=== PATIENT | female | born 1980 | race Caucasian/White ===

== ENCOUNTER 2017-11-04 09:05 | Emergency (ER) | payer OTHER ==
[~2017-11-04] VITALS: Ht 165.1 cm; Wt 117.9 kg
[~2017-11-04 09:05] MED LIST: HUMALOG100 UNIT/2 SC; KETOROLAC TROME10 M1 PO; VICODIN 5-3001 EACH PO
[2017-11-04 09:14] VITALS: BP 138/83
[2017-11-04 10:19] LABS: ABSOLUTE BASOPHIL COUNT 0 /CUMM (0.0-0.2); ABSOLUTE EOSINOPHIL COUNT 0.2 /CUMM (0.0-0.7); ABSOLUTE GRANULOCYTE CT 7.5 /CUMM (1.4-6.5); ABSOLUTE LYMPH COUNT 2.2 /CUMM (1.2-3.4); ABSOLUTE MONOCYTE COUNT 0.4 /CUMM (0.10-0.60); BASOPHIL % 0.3 % (0.0-2.0); EOSINOPHIL % 2.1 % (0-5); GRANULOCYTE % 72.3 % (42.2-75.2); HEMATOCRIT 36.8 % (37-47); MEAN CORPUSCULAR HGB 29.6 PG (27.0-31.0); MEAN CORPUSCULAR HGB CONC 34.1 G/DL (33.0-37.0); MEAN CORPUSCULAR VOLUME 86.8 FL (81.0-99.0); MEAN PLATELET VOLUME 8.3 FL (7.4-10.4); PLATELET COUNT 335 /CUMM (130-400); RBC DISTRIBUTION WIDTH 13.4 % (11.5-14.5); RED BLOOD CELL CT 4.24 /CUMM (4.20-5.40); WHITE BLOOD CELL COUNT 10.4 /CUMM (4.8-10.8)
[2017-11-04] MEDS ORDERED: METFORMIN HCL1000 M1 PO (10:39)
--- NOTE | 2017-11-04 10:44 | CT SCAN REPORT ---
EXAMINATION: CT ABDOMEN AND PELVIS WITHOUT CONTRAST CLINICAL INFORMATION: Right flank and back pain. History of stones. Presumptive diagnosis: Kidney stones. COMPARISON: None TECHNIQUE: Multidetector volumetric imaging was performed from the superior aspect of the liver through the pubic symphysis. Sagittal and coronal reformatted images were obtained on the technologist's workstation. DLP: 1366.98 mGy-cm FINDINGS: LUNG BASES: The visualized lung bases are unremarkable. LIVER, GALLBLADDER, AND BILIARY TREE: The liver is normal in size, shape, and attenuation. No focal hepatic lesion or biliary ductal dilatation is present. The gallbladder is surgically absent. PANCREAS: Unremarkable. SPLEEN: Unremarkable. ADRENAL GLANDS: Unremarkable. KIDNEYS AND URETERS: There are 3 right renal calculi. The largest is in the lower pole and is a focal staghorn type calculus measuring 1.4 x 1.4 x 0.7 cm. The left kidney is unremarkable. There is no hydronephrosis. The ureters are not dilated. The distal right ureter is difficult to visualize. There are a few calcifications along or close to the course of the distal right ureter, which are most likely vascular. Subtle nonobstructing ureteral calculi are difficult to entirely exclude, but are probably unlikely. BLADDER: Unremarkable. GASTROINTESTINAL TRACT: There is a small hiatal hernia. The small and large bowel are unremarkable. The appendix is unremarkable. ABDOMINAL WALL: There is some bulging of the rectus sheath, most prominent in the region of the umbilicus. There is a tiny fat-containing umbilical hernia. LYMPH NODES: Normal. VASCULAR: Unremarkable. PELVIC VISCERA: Unremarkable. OSSEOUS STRUCTURES: Unremarkable. IMPRESSION: 1. Right renal calculi. No hydronephrosis. Probable vascular calcifications along the course of the distal right ureter is otherwise difficult to visualize. No evidence of ureteral dilatation. 2. Small hiatal hernia. 3. Bulging of the rectus sheath and tiny fat-containing umbilical hernia.
--- NOTE | 2017-11-04 11:04 | ED GI/GU/ABDOMINAL COMPLAINT ---
History of Present Illness General Chief Complaint: Abdominal Pain/Flank Pain Stated Complaint: RT FLANK PAIN Source: patient Exam Limitations: no limitations Vital Signs & Intake/Output Vital Signs & Intake/Output ED Intake and Output 11/05 0000 11/04 1200 Intake Total Output Total Balance Patient 260 lb Weight Weight Reported by Patient Measurement Method Allergies Coded Allergies: bee pollen (Severe, ANAPHYLAXIS 10/25/16) peanut (Severe, ANAPHYLAXIS 10/25/16) Reconcile Medications Hydrocodone/Acetaminophen (Stirling 5-325 Tablet) 5 MG-325 MG TABLET 1 TAB PO Q4- 6 PRN PRN PAIN Metformin HCl 1,000 MG TABLET 1 TAB PO BID DIABETES (Reported) Ondansetron (Zofran Odt) 4 MG TAB.RAPDIS 1 TAB SL TID PRN NAUSEA Tamsulosin HCl (Flomax) 0.4 MG CAP.ER.24H 1 CAP PO DAILY KIDNEY STONES Triage Note: PT TO ED WITH C/O RIGHT FLANK PAIN, HX KIDNEY STONES A COUPLE OF YEARS AGO, FEELS THE SAME. PT ALSO C/O VOMITING SINCE LAST NIGHT. Triage Nurses Notes Reviewed? yes LMP (ages 10-50): unknown ? N Is pt currently ? No Onset: Abrupt Duration: day(s): (1), constant, continues in ED, getting worse Timing: remote history Quality/Severity: cramping Severity Numbers: 9 Location: right flank Radiation: back Activities at Onset: none Prior Abdominal Problems: similar symptoms Past Sexual History: Unobtainable at this time No Modifying Factors: none HPI: 36-year-old female history of obesity, kidney stones, diabetes presents evaluation of right flank pain. Patient reports symptoms started last night into today and been getting worse. The pain is located in the right flank radiating to the back. Described as cramping. Associated with nausea and vomiting. Patient reports a history of kidney stones feeling is similar. She's never required lithotripsy. She denies fever dysuria frequency urgency chest pain shortness of breath with difficulty urinating. She has not taken any medicine for the symptoms. She is tolerating water. (Alexey Delvalle) Past History Travel History Traveled to [place] past 21 day No Medical History Any Pertinent Medical History? see below for history Neurological: NONE EENT: NONE Cardiovascular: NONE Respiratory: NONE Gastrointestinal: NONE Hepatic: NONE Renal: KIDNEY STONES Musculoskeletal: NONE Psychiatric: NONE Endocrine: INSULIN DEPENDENT DM Blood Disorders: NONE Cancer(s): NONE Other Medical Hx: DVT, PVD Surgical History Surgical History: non-contributory Psychosocial History What is your primary language Lao Tobacco Use: Never used ETOH Use: denies use Illicit Drug Use: denies illicit drug use Family History Hx Contributory? No (Alexey Delvalle) Review of Systems Review of Systems Constitutional: Reports: no symptoms. EENTM: Reports: no symptoms. Respiratory: Reports: no symptoms. Cardiovascular: Reports: no symptoms. GI: Reports: see HPI, abdominal pain, nausea, vomiting. Genitourinary: Reports: no symptoms. Musculoskeletal: Reports: see HPI, back pain. Skin: Reports: no symptoms. Neurological/Psychological: Reports: no symptoms. Hematologic/Endocrine: Reports: no symptoms. Immunologic/Allergic: Reports: no symptoms. All Other Systems: Reviewed and Negative (Alexey Delvalle) Physical Exam Physical Exam General Appearance: well developed/nourished, no apparent distress, alert, awake , obese Head: atraumatic, normal appearance Eyes: Bilateral: normal appearance, PERRL, EOMI. Ears, Nose, Throat, Mouth: moist mucous membrane Neck: normal inspection, supple, full range of motion Respiratory: normal breath sounds, chest non-tender, no respiratory distress, lungs clear Cardiovascular: regular rate/rhythm, normal peripheral pulses Peripheral Pulses: 2+ radial (R), 2+ radial (L) Gastrointestinal: normal bowel sounds, soft, no organomegaly, tenderness (RT FLANK) Back: normal inspection, normal range of motion, RIGHT-SIDED LUMBAR PARASPINAL MUSCLES ARE TENDER TO PALPATION NO cva TENDERNESS NO MIDLINE TENDERNESS Extremities: normal range of motion Neurologic/Psych: no motor/sensory deficits, awake, alert, oriented x 3, normal gait Skin: intact, normal color, warm/dry Core Measures ACS in differential dx? No Sepsis Present: No Sepsis Focused Exam Completed? No (Alexey Delvalle) Progress Differential Diagnosis: appendicitis, biliary colic, colon cancer, cholecystitis , diverticulitis, hepatitis, kidney stone, ovarian cyst, ovarian torsion, pancreatitis, PID/cervicitis, peptic ulcer, PUD/GERD, UTI/pyelo Plan of Care: Orders Procedure Date/time Status URINE 11/05 915 Complete URINALYSIS 11/05 915 Complete LIPASE 11/05 915 Complete COMPREHENSIVE METABOLIC PANEL 09/12 0916 Complete CBC WITHOUT DIFFERENTIAL 11/05 915 Complete Laboratory Tests 11/04/17 1001: Urine Color YEL, Urine Clarity CLEAR, Urine pH 6.0, Ur Specific [place] >= 1.030 , Urine Protein NEG, Urine Ketones NEG, Urine Nitrite NEG, Urine Bilirubin NEG, Urine Urobilinogen 0.2, Ur Leukocyte Esterase NEG, Ur Microscopic SEDIMENT EXAMINED, Urine RBC 1-3, Urine WBC 5-10 H, Ur Epithelial Cells MOD H, Urine Bacteria FEW H, Urine Hemoglobin TRACE-INTACT, Urine Glucose NEG, Urine Test NEGATIVE 11/04/17 0959: Anion Gap 9, Estimated GFR > 60, BUN/Creatinine Ratio 17.5, Glucose 169 H, Calcium 9.4, Total Bilirubin 0.3, AST 21, ALT 28, Alkaline Phosphatase 52, Total Protein 6.9, Albumin 3.9, Globulin 3.0, Albumin/Globulin Ratio 1.3, Lipase 87, CBC w Diff NO MAN DIFF REQ, RBC 4.24, MCV 86.8, MCH 29.6, MCHC 34.1, RDW 13.4, MPV 8.3, Gran % 72.3, Lymphocytes % 21.0, Monocytes % 4.3, Eosinophils % 2.1, Basophils % 0.3, Absolute Granulocytes 7.5 H, Absolute Lymphocytes 2.2, Absolute Monocytes 0.4, Absolute Eosinophils 0.2, Absolute Basophils 0 Patient is here with right flank pain. She has a history of kidney stones feels like is similar. Vital signs are stable labs CT scan ordered patient medicated with Toradol and Zofran. Urine is negative for signs of infection. Blood work is unremarkable. CT scan shows renal stones without hydronephrosis or hydroureter. No visible stones in the ureter. Patient is feeling better after Toradol. She was given a prescription for Flomax Zofran and Stirling. Follow-up with urology. Discussed return precautions in detail patient agrees the plan Diagnostic Imaging: Viewed by Me: CT Scan. Discussed w/RAD: CT Scan. Radiology Impression: PATIENT: LYLE FLOWERS PRESENT AGE: 36 PATIENT ACCOUNT NO: [id number] : 82 LOCATION: [facility] ORDERING PHYSICIAN: Alexey BRONSON SERVICE DATE: 11/04/17 EXAM TYPE: CAT - CT ABD & PELVIS W/O IV CONTRAS EXAMINATION: CT ABDOMEN AND PELVIS WITHOUT CONTRAST CLINICAL INFORMATION: Right flank and back pain. History of stones. Presumptive diagnosis: Kidney stones. COMPARISON: None TECHNIQUE: Multidetector volumetric imaging was performed from the superior aspect of the liver through the pubic symphysis. Sagittal and coronal reformatted images were obtained on the technologist's workstation. DLP: 1366.98 mGy-cm FINDINGS: LUNG BASES: The visualized lung bases are unremarkable. LIVER, GALLBLADDER, AND BILIARY TREE: The liver is normal in size, shape, and attenuation. No focal hepatic lesion or biliary ductal dilatation is present. The gallbladder is surgically absent. PANCREAS: Unremarkable. SPLEEN: Unremarkable. ADRENAL GLANDS: Unremarkable. KIDNEYS AND URETERS: There are 3 right renal calculi. The largest is in the lower pole and is a focal staghorn type calculus measuring 1.4 x 1.4 x 0.7 cm. The left kidney is unremarkable. There is no hydronephrosis. The ureters are not dilated. The distal right ureter is difficult to visualize. There are a few calcifications along or close to the course of the distal right ureter, which are most likely vascular. Subtle nonobstructing ureteral calculi are difficult to entirely exclude, but are probably unlikely. BLADDER: Unremarkable. GASTROINTESTINAL TRACT: There is a small hiatal hernia. The small and large bowel are unremarkable. The appendix is unremarkable. ABDOMINAL WALL: There is some bulging of the rectus sheath, most prominent in the region of the umbilicus. There is a tiny fat-containing umbilical hernia. LYMPH NODES: Normal. VASCULAR: Unremarkable. PELVIC VISCERA: Unremarkable. OSSEOUS STRUCTURES: Unremarkable. IMPRESSION: 1. Right renal calculi. No hydronephrosis. Probable vascular calcifications along the course of the distal right ureter is otherwise difficult to visualize. No evidence of ureteral dilatation. 2. Small hiatal hernia. 3. Bulging of the rectus sheath and tiny fat-containing umbilical hernia. DICTATED BY: Teddy Dunlap MD DATE/TIME DICTATED:11/04/171025 BODY REPAIRER:SEVEN DATE/TIME TRANSCRIBED:11/04/171025 Initial ED EKG: none (Alexey Delvalle) Departure Departure Disposition: HOME OR SELF CARE Condition: Stable Clinical Impression Primary Impression: Renal colic on right side Referrals: Teddy GARCIA,Isael Scott MD,[facility] (PCP/Family) Additional Instructions: Rest and drink plenty of fluids. Zofran for nausea ibuprofen Stirling for pain. Take Flomax as directed. Make a follow-up with Dr. Espinal urologist as soon as possible. Monitor your symptoms return with any concerns. Please note that there might be incidental findings in your evaluation that are unrelated to the current emergency department visit. Please notify your primary care doctor about this emergency department visit in order to obtain and review all of the testing performed so that these incidental findings can be monitored as needed. If you had an x-ray performed, please understand that some fractures or other findings may not be seen on the initial set of x-rays. If your symptoms persist you might need a repeat set of x-rays to check for such a fracture. If you had a laceration evaluated, please understand that foreign bodies such as glass or wood may not be visible to the naked eye or on plain x-rays. If the wound becomes red, swollen, increasingly more painful or if there is any drainage from the wound, please have it reevaluated by a physician for the possibility of a retained foreign body. If you're unable to follow up as outlined in the discharge instructions please return to the emergency department. Thank you for choosing the [facility] Emergency Department for your care. It was a pleasure to serve you today. Departure Forms: Customer Survey General Discharge Information Prescriptions: Current Visit Scripts Hydrocodone/Acetaminophen (Stirling 5-325 Tablet) 1 TAB PO Q4-6 PRN PRN PAIN #10 TAB Tamsulosin HCl (Flomax) 1 CAP PO DAILY #15 CAP Ondansetron (Zofran Odt) 1 TAB SL TID PRN NAUSEA #15 TAB (Alexey Delvalle) PA/GLOVE BOARDER Co-Sign Statement Statement: ED Attending supervision documentation- [] I saw and evaluated the patient. I have also reviewed all the pertinent lab results and diagnostic results. I agree with the findings and the plan of care as documented in the PA's/GLOVE BOARDER's documentation. [x] I have reviewed the ED Record and agree with the PA's/GLOVE BOARDER's documentation. [] Additions or exceptions (if any) to the PAs/GLOVE BOARDER's note and plan are summarized below: [] (Sharan GARCIA,Franky)
[2017-11-04] MEDS ORDERED: FLOMAX0.4 M1 PO ×2 (11:07→11:08)
[2017-11-04] MEDS ORDERED: NORCO 5-325 TA1 EACH PO ×2 (11:07→11:08)
[2017-11-04] MEDS ORDERED: ZOFRAN ODT4 M1 SL ×2 (11:07→11:08)
== END 2017-11-04 11:26 ==
LOC: ERH 09:05
PROVIDERS: Physician Assistant Medical
DX: N23 Unspecified renal colic (principal); R11.2 Nausea with vomiting, unspecified; R10.9 Unspecified abdominal pain; E11.9 Type 2 diabetes mellitus without complications; Z79.84 Long term (current) use of oral hypoglycemic drugs
CPT/HCPCS: 74176; 81001; 81025; 96372; J1885; J3101

== ENCOUNTER → 2017-11-13 | Day surgery (SDC) | payer OTHER ==
[~2017-11-13] VITALS: Ht 165.1 cm; Wt 117.9 kg
[~2017-11-13] MED LIST changes: +FLOMAX0.4 M1 PO; +METFORMIN HCL1000 M1 PO; +NORCO 5-325 TA1 EACH PO; +PERCOCET 10-321 EACH PO; +ZOFRAN ODT4 M1 SL
--- NOTE | 2017-11-13 13:32 | Operative Report ---
Operative/Inv Procedure Report Surgery Date: 11/13/17 Name of Procedure: right ureteroscopy with laser lithotripsy and stone extraction and stent placement Pre-Operative Diagnosis: Right renal stones 3 the largest in the lower pole [place] 1.4 cm in size Post-Operative Diagnosis: one large stone seen in LP Estimated Blood Loss: less than 50ml Surgeon/Solutions Architect: Katya Morales MD Anesthesia: laryngeal mask airway Drains: 6 x 24 cm ureteral stent Specimens: none Complications: unable to reach stone with flex digitial scope and too large to basket Condition: Stable Operative Indication: Right renal stones with renal colic Operative/Procedure Note Note: This is a 37-year-old female with a history of kidney stones. She has never had a procedure before and has a very strong family history for kidney stones and also admits to not taking much fluids. She does not like doctors. She's had right renal colic and a CAT scan showed 3 renal stones in the right side and none on the left. The largest on the right side is 1.4 cm in the lower pole. none in the ureters that were appreciated. She has required narcotic pain medication for pain control. She was given the option of extracorporeal shockwave lithotripsy versus ureteroscopy with laser lithotripsy. She wants to have the ureteroscopy with laser lithotripsy. All questions were answered. The risks benefits and alternatives were given and the office as well as the holding area. Consent was signed and her right hand was marked. Patient was brought to the operating placed on the operating table in the supine position. Timeout was performed. IV antibiotics were infused. LMA anesthesia was begun and the patient was placed in the dorsal lithotomy position. She was prepped and draped in the standard sterile fashion. Cystoscopy was performed and the bladder was globally inspected. The ureteral orifices were easily identified. The right ureteral orifice was cannulated with a sensor guidewire followed by a dual-lumen catheter placing a second solo wire. The wire was then used to place a ureteral access sheath 25 cm in length first the inner sheath followed by the inner and outer sheath together. This was left in place and then the flexible ureteroscope was then placed up into the renal pelvis and the calyces were examined. Stone was identified in the lower pole however it was very difficult to visualize given its position. Fluoroscopic view showed a very large stone in the lower pole. 0 tip basket was then attempted to move the stone out of the lower pole however was too large to be basketed. The scope was removed along with the sheath evaluating the ureter on the way out. There were no stones in the ureter. The remaining solo guidewire was then used to place a 6 x 24 cm ureteral stent. Seen to be in good position by fluoroscopy. Fluoroscopic images were taken throughout the procedure. The bladder was emptied patient was cleaned with Betadine solution. Patient tolerated procedure well. She was transferred to the recovery room stable condition. Findings: Right renal stones right renal stones with the largest in the right lower pole Discharge Disposition: PACU
--- NOTE | 2017-11-16 17:36 | RADIOLOGY REPORT ---
EXAMINATION: CR ABDOMEN/INTRAOPERATIVE FLUOROSCOPY CLINICAL INDICATION: Right ureteroscopy, lithotripsy and stent insertion in OR. COMPARISON: CT scan of the abdomen and pelvis dated 11/04/2017. TECHNIQUE/FINDINGS: Fluoroscopic equipment was dedicated to the operating room for the performance of an intraoperative procedure. Several (10) spot films were acquired and are archived in PACS. Please refer to operative notes for procedural detail. FLUOROSCOPY TIME: 18 seconds. IMPRESSION: Administrative dictation for intraoperative fluoroscopy and image archiving in PACS. Please refer to operative notes for details.
== END ==
LOC: STS 03:19 → EDSTATUS 07:00
DX: N20.0 Calculus of kidney (principal); Z87.442 Personal history of urinary calculi; R35.0 Frequency of micturition; R10.9 Unspecified abdominal pain; N32.81 Overactive bladder; R39.14 Feeling of incomplete bladder emptying; N39.0 Urinary tract infection, site not specified; E66.9 Obesity, unspecified; Z68.41 Body mass index [BMI] 40.0-44.9, adult
CPT/HCPCS: 76000; C2617; J0131; J0690; J2250